=== PATIENT | male | born 1980 | race Two or more races ===

== ENCOUNTER 2019-07-29 21:42 | Emergency (ER) | payer SELFPAY ==
[~2019-07-29] VITALS: Ht 162.6 cm; Wt 86.4 kg
[~2019-07-29 21:42] MED LIST: NOCURR
[2019-07-29] MEDS ORDERED: LIDOCAINE 5% TRANSDERMAL PATCH TD ONE (22:45)
[2019-07-29] MEDS ORDERED: IBUPROFEN 600 MG TABLET PO ONE (22:45)
[2019-07-29 23:56] VITALS: BP 119/71
[2019-07-30] MEDS ORDERED: LIDOCAINE 5% TRANSDERMAL PATCH TD ONE
[2019-07-30] MEDS ORDERED: IBUPROFEN 600 MG TABLET PO ONE
== END 2019-07-30 00:13 | disposition home or self-care (01) ==
LOC: EMS 21:47
DX: S13.4XXA Sprain of ligaments of cervical spine, initial encounter (principal); S46.912A Strain of unspecified muscle, fascia and tendon at shoulder and upper arm level, left arm, initial encounter; S66.912A Strain of unspecified muscle, fascia and tendon at wrist and hand level, left hand, initial encounter; S29.012A Strain of muscle and tendon of back wall of thorax, initial encounter; S39.012A Strain of muscle, fascia and tendon of lower back, initial encounter; V49.40XA Driver injured in collision with unspecified motor vehicles in traffic accident, initial encounter; Y93.89 Activity, other specified; Y92.89 Other specified places as the place of occurrence of the external cause; Y99.8 Other external cause status
CPT/HCPCS: 72040; 72070; 72100

== ENCOUNTER 2021-10-16 04:38 | Emergency (ER) | payer SELFPAY ==
[~2021-10-16] VITALS: Ht 167.6 cm; Wt 90.9 kg
[2021-10-16] MEDS ORDERED: LORazepam 2 MG/ML VIAL IM ONE (06:15)
[2021-10-16 06:30] VITALS: BP 116/74
[2021-10-16 07:01] LABS: AMPHET/METH SCREEN,URINE NEGATIVE (NEGATIVE); BARBITURATE SCREEN, URINE NEGATIVE (NEGATIVE); BENZODIAZEPINES SCREEN,URINE NEGATIVE (NEGATIVE); CANNABINOID SCREEN,URINE POSITIVE (NEGATIVE); COCAINE SCREEN,URINE NEGATIVE (NEGATIVE); METHADONE SCREEN, URINE NEGATIVE (NEGATIVE); OPIATE SCREEN,URINE NEGATIVE (NEGATIVE); PHENCYCLIDINE SCREEN,URINE NEGATIVE (NEGATIVE)
== END 2021-10-16 06:20 | disposition home or self-care (01) ==
LOC: EMS 04:38
DX: F41.9 Anxiety disorder, unspecified (principal); T50.995A Adverse effect of other drugs, medicaments and biological substances, initial encounter; Y92.89 Other specified places as the place of occurrence of the external cause; R00.0 Tachycardia, unspecified; Z79.899 Other long term (current) drug therapy
CPT/HCPCS: 93005; 99284

== ENCOUNTER 2022-02-24 21:11 | Emergency (ER) | payer MEDICAID ==
[~2022-02-24] VITALS: Ht 172.7 cm; Wt 95.5 kg
[2022-02-24] MEDS ORDERED: SODIUM CHLORIDE 0.9% 1,000 ML IV ONE (22:15)
[2022-02-24 22:51] LABS: COVID AG,FIA SOURCE NASAL SWAB
[2022-02-24 22:54] LABS: BASOPHILS % (AUTO) 0.6 % (0.0-2.0); EOSINOPHILS % (AUTO) 0.3 % (1.0-6.0); HEMATOCRIT 45.9 % (41-53); HEMOGLOBIN 15.5 g/dL (13.5-17.5); LYMPHOCYTES # (AUTO) 1.1 K/uL (1.0-4.8); MEAN CORPUSCULAR HEMOGLOBIN 29.6 pg (26.0-34.0); MEAN CORPUSCULAR HGB CONC 33.8 G/dL (31.0-37.0); MEAN CORPUSCULAR VOLUME 88 fL (80-100); MONOCYTES # (AUTO) 0.4 K/uL (0.1-1.0); MONOCYTES % (AUTO) 4.3 % (2.0-9.0); NEUTROPHILS # (AUTO) 7.4 K/uL (1.8-7.7); NEUTROPHILS % (AUTO) 82.8 % (40.0-70.0); PLATELET COUNT (AUTO) 280 K/uL (150-450); RED BLOOD CELL COUNT(AUTO) 5.24 MIL/uL (4.50-5.90); RED CELL DISTRIBUTION WIDTH 14.2 % (11.5-14.5)
[2022-02-24 23:03] LABS: ANION GAP 14 mmol/L (8-16); CALCIUM, TOTAL 9.6 mg/dL (8.8-10.5); CARBON DIOXIDE 22 mmol/L (22-29); CHLORIDE 103 mmol/L (98-107); CREATININE 0.86 mg/dL (0.60-1.30); GLOMERULAR FILTR. RATE CALC > 60 mL/min (>60); GLUCOSE,RANDOM 115 mg/dL (70-110); POTASSIUM 3.5 mmol/L (3.5-5.1); SODIUM SERUM 139 mmol/L (136-145); UREA NITROGEN, BLOOD 14 mg/dL (7-18)
[2022-02-24 23:09] LABS: ALANINE AMINOTRANSFERASE 28 U/L (12-78); ALBUMIN 4.6 g/dL (3.4-5.0); ALKALINE PHOSPHATASE 62 U/L (46-116); ASPARTATE AMINOTRANSFERASE 12 U/L (15-37); TOTAL PROTEIN, SERUM 8.8 g/dL (6.4-8.2)
[2022-02-24 23:11] LABS: INFLUENZA TYPE A NEGATIVE FOR TYPE A (NEGATIVE); INFLUENZA TYPE B NEGATIVE FOR TYPE B (NEGATIVE)
[2022-02-25 01:42] VITALS: BP 111/65
== END 2022-02-25 01:59 | disposition home or self-care (01) ==
LOC: EMS 21:42
DX: R53.83 Other fatigue (principal); R53.81 Other malaise; M79.10 Myalgia, unspecified site; K21.9 Gastro-esophageal reflux disease without esophagitis; Z20.822 Contact with and (suspected) exposure to COVID-19
CPT/HCPCS: 71045; 80053; 84484; 85025; 87804; 93005; 96360; 99285; J7030; 36415-L1; 36415-TC